=== PATIENT | male | born 1950 | race Caucasian/White ===

== ENCOUNTER 2017-06-20 00:50 | Emergency (ER) | payer MEDICARE, MEDICAID ==
--- NOTE | 2017-06-20 01:19 | Emergency Department Record ---
History of Present Illness - General Chief Complaint: General Stated Complaint: LOW BLOOD PRESSURE CONCERNS Time Seen by Provider: 06/20/17 01:12 Source: Patient Mode of Arrival: Ambulatory Limitations: No limitations - History of Present Illness Initial comments: 66 yo male presents to ED for evaluation of his blood pressure this evening. Patient is an [facility] resident, caregiver reports that the patient appears at his baseline without recent fevers, chills, cough, abdominal pain, or symptoms of illness. 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 Onset/Timin -: Days(s) Consistency: Intermittent Improves with: None Worsens with: None Associated Symptoms: Denies other symptoms - [place] Coma Scale Eye Response: (4) Open spontaneously Motor Response: (6) Obeys commands Verbal Response: (5) Oriented [place] Total: 15 - Related Data Home Medications Medication Instructions Recorded Confirmed Last Taken Metformin HCl [Fortamet] 1,000 mg PO BID 06/20/17 06/20/17 Unknown Tamsulosin HCl [Flomax] 0.4 mg PO DAILY 06/20/17 06/20/17 Unknown Trazodone HCl [Desyrel] 25 mg PO QHS 06/20/17 06/20/17 Unknown Allergies Allergy/AdvReac Type Severity Reaction Status Date / Time No Known Drug Allergies Allergy Verified 06/01/17 15:16 Travel Screening - Travel/Exposure Within Last 30 Days Have you traveled within the last 30 days?: No - Travel Symptoms Symptom Screening: None Review of Systems ROS unobtainable: Due to mental status Constitutional: Denies: Fever ENT: Denies: Congestion Respiratory: Denies: Cough Gastrointestinal: Denies: Abdominal pain Past Medical History - SOCIAL HISTORY Smoking Status: Unknown if ever smoked Alcohol Use: None Drug Use: None - RESPIRATORY Hx Respiratory Disorders: No - CARDIOVASCULAR Hx Cardio Disorders: Yes Hx Hypertension: Yes Hx Irregular Heartbeat: Yes (afib) Comment:: hyperlipidemia - NEURO Hx Neuro Disorders: Yes Hx Dementia: Yes Comment:: Mental retardation - GI Hx GI Disorders: Yes Hx Reflux: Yes - Hx Genitourinary Disorders: Yes Hx Prostate Problems: Yes (BPH) - ENDOCRINE Hx Endocrine Disorders: Yes Hx Diabetes: Yes (type 2) - MUSCULOSKELETAL Hx Musculoskeletal Disorders: No - PSYCH Hx Psych Problems: Yes Hx Behavior Problems: Yes (Mood disorder) Comment:: Antisocial personality - HEMATOLOGY/ONCOLOGY Hx Hematology/Oncology Disorders: No Family Medical History Any Significant Family History?: No Family Hx Comment (NOT TO BE USED IN PLACE OF ITEMS BELOW): Unknown Physical Exam - General General Appearance: Alert, Oriented x3, Cooperative, No acute distress, Other ( smiling, well appearing, asks "can I have a cup of coffee?") Limitations: No limitations - Head Head exam: Atraumatic, Normocephalic, Normal inspection Head exam detail: negative: Abrasion, Contusion, Swanson's sign, General tenderness, Hematoma, Laceration - Eye Eye exam: Normal appearance. negative: Conjunctival injection, Periorbital swelling, Periorbital tenderness, Scleral icterus - ENT Ear exam: negative: Auricular hematoma, Auricular trauma Nasal Exam: negative: Active bleeding, Discharge, Dried blood, Foreign body Mouth exam: negative: Drooling, Laceration, Muffled voice, Tongue elevation - Neck Neck exam: Normal inspection. negative: Meningismus, Tenderness - Respiratory Respiratory exam: Normal lung sounds bilaterally. negative: Rales, Respiratory distress, Rhonchi, Stridor - Cardiovascular Cardiovascular Exam: Regular rate, Normal rhythm, Normal heart sounds - GI/Abdominal GI/Abdominal exam: Soft. negative: Rebound, Rigid, Tenderness - Rectal Rectal exam: Deferred - exam: Deferred - Extremities Extremities exam: Normal inspection, Other (Few abrasions/lesions to the right anterior ankle). negative: Calf tenderness, Pedal edema, Tenderness - Back Back exam: Denies: CVA tenderness (R), CVA tenderness (L) - Neurological Neurological exam: Alert, Oriented X3 - Psychiatric Psychiatric exam: Normal affect, Normal mood - Skin Skin exam: Normal color Type of lesion: negative: abrasion Course Vital Signs 06/20/17 00:58 Temperature 97.5 F L Pulse Rate [ 76 Pulse Ox Probe] Respiratory 16 Rate Blood Pressure 134/75 [Left Arm] Pulse Ox 96 - Reevaluation(s) Reevaluation #1: 06/20/17 01:16 BP 134/76 on examination, repeat 123/72, pulse 70's. Patient has no clinical evidence of acute illness or sepsis on examination, and the patient's caregiver reports that the patient is at his baseline. Further evaluation with laboratory studies/imaging do not appear indicated at this time. Patient appears stable for discharge with return for any worsening of his symptoms or the development of any change in mental status, cough, fever, or abdominal pain symptoms. Caregiver is in agreement with the plan of care, and the patient appears stable for discharge at this time. Disposition Disposition: Discharge Clinical Impression: Blood pressure check Disposition: Home, Self-Care Condition: (2) Stable Instructions: How to Take a Blood Pressure (ED) Additional Instructions: Return to ED if your symptoms worsen or if you have any concerns. Follow-up with your family doctor in 3-5 days as directed. Forms: Patient Portal Access Time of Disposition: 01:20 Quality - Quality Measures Quality Measures: Blunt Head Trauma (>2yr) - Blunt Head Trauma - Adult Quality Measure: Measure #415: Utilization of CT for Minor Blunt Head Trauma ICD10 Codes Entered: Yes Was CT ordered: No Car[place] Score: Please complete [place] Coma Scale above Utilization of CT for Minor Blunt Head Trauma: Not Eligible For Measure Additional Inclusion Criteria: More than 24hrs (OR) GCS not 15 (OR) CT not ordered. Not Eligible Reason: CT Not Ordered - Blood Pressure Screening Does Patient Have Any of the Following: No Blood Pressure Classification: Pre-Hypertensive BP Reading Systolic Measurement: 123 Diastolic Measurement: 72 Screening for High Blood Pressure: < Pre-Hypertensive BP, F/U Documented > [ G8950] Pre-Hypertensive Follow-up Interventions: Referral to alternative/primary care provider.
== END 2017-06-20 01:25 | disposition home or self-care (01) ==
LOC: ER 00:50
DX: I10 Essential (primary) hypertension (principal); I48.91 Unspecified atrial fibrillation; E11.9 Type 2 diabetes mellitus without complications; Z91.81 History of falling; F03.90 Unspecified dementia, unspecified severity, without behavioral disturbance, psychotic disturbance, mood disturbance, and anxiety
CPT/HCPCS: 99282

== ENCOUNTER 2018-06-27 22:56 | Emergency (ER) | payer MEDICARE, MEDICAID ==
--- NOTE | 2018-06-27 23:15 | Emergency Department Record ---
History of Present Illness - General Chief Complaint: Fall Injury Stated Complaint: FALL Time Seen by Provider: 06/27/18 23:09 Source: Patient (Care worker) Mode of Arrival: Ambulatory Limitations: Other - History of Present Illness Initial Comments: 67 yo male presents to ED for evaluation following injury to the right elbow 5 days ago. Patient's visiting nurse came to his home today and found bruising to the right elbow with a "knot" to the elbow, wanted to be sure there was not an underlying fracture. [employer] reports a history of psychiatric problems previously. MD Complaint: Other (Injury) Onset/Timin -: Days(s) Fall From: Standing When Fall Occurred: # Days [facility] Fall Witnessed: Yes, by living facility staff Place Fall Occurred: Home Loss of Consciousness: None Prolonged Down Time?: No Symptoms Prior to Fall: None Location: Other Location - Extremities: Right: Elbow - [place] Coma Scale Eye Response: (4) Open spontaneously Motor Response: (6) Obeys commands Verbal Response: (5) Oriented [place] Total: 15 - Related Data Allergies Allergy/AdvReac Type Severity Reaction Status Date / Time No Known Drug Allergies Allergy Verified 06/27/18 23:02 Travel Screening - Travel/Exposure Within Last 30 Days Have you traveled within the last 30 days?: No - Travel/Exposure Within Last Year Have you traveled outside the [place] in the last year?: No - Additonal Travel Details Have you been exposed to anyone with a communicable illness?: No - Travel Symptoms Symptom Screening: None Review of Systems ROS unobtainable: Due to mental status Past Medical History - SOCIAL HISTORY Smoking Status: Never smoker Alcohol Use: None Drug Use: None - RESPIRATORY Hx Respiratory Disorders: No - CARDIOVASCULAR Hx Cardio Disorders: Yes Hx Hypertension: Yes Hx Irregular Heartbeat: Yes (afib) Comment:: hyperlipidemia - NEURO Hx Neuro Disorders: Yes Hx Dementia: Yes Comment:: Mental retardation - GI Hx GI Disorders: Yes Hx Reflux: Yes - Hx Genitourinary Disorders: Yes Hx Prostate Problems: Yes (BPH) - ENDOCRINE Hx Endocrine Disorders: Yes Hx Diabetes: Yes (type 2) - MUSCULOSKELETAL Hx Musculoskeletal Disorders: No - PSYCH Hx Psych Problems: Yes Hx Behavior Problems: Yes (Mood disorder) Comment:: Antisocial personality - HEMATOLOGY/ONCOLOGY Hx Hematology/Oncology Disorders: No Family Medical History Any Significant Family History?: No Family Hx Comment (NOT TO BE USED IN PLACE OF ITEMS BELOW): Unknown Physical Exam - General General Appearance: Alert, No acute distress, Other (Flat affect, does nto answer questions on examination, insurance healthcare representative reports that the patient is at his baseline mental status.) - Head Head exam: Atraumatic, Normocephalic, Normal inspection Head exam detail: negative: Abrasion, Contusion, Swanson's sign, General tenderness, Hematoma, Laceration - Eye Eye exam: Normal appearance. negative: Conjunctival injection, Periorbital swelling, Periorbital tenderness, Scleral icterus - ENT Ear exam: negative: Auricular hematoma, Auricular trauma Nasal Exam: negative: Active bleeding, Discharge, Dried blood, Foreign body Mouth exam: negative: Drooling, Laceration, Muffled voice, Tongue elevation - Neck Neck exam: Normal inspection. negative: Meningismus, Tenderness - Respiratory Respiratory exam: Normal lung sounds bilaterally. negative: Rales, Respiratory distress, Rhonchi, Stridor - Cardiovascular Cardiovascular Exam: Regular rate, Normal rhythm, Normal heart sounds Peripheral Pulses: 3+: Radial (R) - GI/Abdominal GI/Abdominal exam: Soft. negative: Rebound, Rigid, Tenderness - Rectal Rectal exam: Deferred - exam: Deferred - Extremities Extremities exam: Full ROM, Other (Ecchymosis to the right elbow, FROM present, strong distal radial pulse. Small area of hematoma present that is moveable below the skin.). negative: Calf tenderness, Pedal edema, Tenderness - Back Back exam: Denies: CVA tenderness (R), CVA tenderness (L) - Neurological Neurological exam: Alert, Other (At baseline mental status). negative: Motor sensory deficit - Psychiatric Psychiatric exam: Normal affect, Normal mood - Skin Skin exam: Pallor (Per caregiver pallor is normal for the patient.). negative: Abrasion Type of lesion: negative: abrasion Course - Reevaluation(s) Reevaluation #1: 06/27/18 23:23 Right elbow: Arthritic changes, nothing acute Patient and his caregiver were updated on radiograph results, patient appears stable for discharge at this time. Disposition Disposition: Discharge Clinical Impression: Contusion of elbow, right Qualifiers: Encounter type: initial encounter Qualified Code(s): S50.01XA - Contusion of right elbow, initial encounter Disposition: Home, Self-Care Condition: (2) Stable Instructions: Contusion in Adults (ED) Additional Instructions: Return to ED if your symptoms worsen or if you have any concerns. Follow-up with your family doctor in 3-5 days as directed. Forms: Patient Portal Access Time of Disposition: 23:23 Quality - Quality Measures Quality Measures: N/A - Blood Pressure Screening Does Patient Have Any of the Following: No Blood Pressure Classification: Pre-Hypertensive BP Reading Systolic Measurement: 140 Diastolic Measurement: 81 Screening for High Blood Pressure: < Pre-Hypertensive BP, F/U Documented > [ G8950] Pre-Hypertensive Follow-up Interventions: Referral to alternative/primary care provider.
== END 2018-06-27 23:32 | disposition home or self-care (01) ==
LOC: ER 22:56
DX: S50.01XA Contusion of right elbow, initial encounter (principal); W18.12XA Fall from or off toilet with subsequent striking against object, initial encounter; Y92.009 Unspecified place in unspecified non-institutional (private) residence as the place of occurrence of the external cause; I10 Essential (primary) hypertension
CPT/HCPCS: 99283